=== PATIENT | female | born 1945 | race Caucasian/White ===

== ENCOUNTER 2016-10-04 14:01 | Emergency (ER) | payer MEDICARE, BC ==
[2016-10-04 14:33] VITALS: BP 121/63
--- NOTE | 2016-10-04 14:35 | EDM.PDOC ---
ED HPI GENERAL MEDICAL PROBLEM - General Chief Complaint: General Stated Complaint: bleeding after dialysis Time Seen by Provider: 10/04/16 14:29 Source of Information: Reports: Patient History Limitations: Reports: No Limitations - History of Present Illness INITIAL COMMENTS - FREE TEXT/NARRATIVE: PT PRESENTS FROM DIALYSIS CENTER WITH CONCERN FOR LOW HEMOGLOBIN AND PERSISTENT BLEEDING FORM AV FISTULA ACCESS SITE POST DIALYSIS TODAY. DENIES CP, FEVER, N/V/ D, BLOOD IN STOOL. RECEIVES DIALYSIS M/W/F. Onset: Today Onset Date: 10/04/16 Location: Reports: Upper Extremity, Left Severity: Mild Improves with: Reports: Other (PRESSURE AT SITE) Worsens with: Reports: None Associated Symptoms: Reports: No Other Symptoms - Related Data Allergies Allergy/AdvReac Type Severity Reaction Status Date / Time No Known Allergies Allergy Verified 11/16/14 11:20 Home Meds: Home Meds Acetaminophen/oxyCODONE [Percocet 325-5 MG] 1 tab PO Q4H PRN 08/01/14 [History] Amiodarone [Cordarone] 200 mg PO DAILY 08/01/14 [History] Gabapentin [Gabapentin] 300 mg PO BID 08/01/14 [History] Insulin Glargine,Hum.Rec.Anlog [Lantus Solostar] 70 units SUBCUT DAILY 08/01/14 [History] Omeprazole [Omeprazole] 20 mg PO DAILY 08/01/14 [History] Sevelamer Carbonate [Renvela] 3 tab PO TID 08/01/14 [History] Tiotropium [Spiriva HandiHaler] 18 mcg INH DAILY 11/16/14 [History] Biotin/FA/Vit C/Vit B Complex [Nephrocaps] 1 tab PO DAILY 10/04/16 [History] Docusate Sodium [Colace] 100 mg PO DAILY 10/04/16 [History] Fluticasone/Salmeterol [Advair 250-50 Diskus] 1 puff INH BID 10/04/16 [History] Nitroglycerin [Nitrostat] 0.4 mg SL ASDIRECTED PRN MDD 3 10/04/16 [History] Warfarin Sodium [Coumadin] 3 mg PO DAILY 10/04/16 [History] atorvaSTATin Calcium [Atorvastatin Calcium] 40 mg PO DAILY 10/04/16 [History] Social & Family History - Tobacco Use Smoking Status *Q: Former Smoker Years of Tobacco use: 35 Used Tobacco, but Quit: Yes Month Tobacco Last Used: 1 Second Hand Smoke Exposure: No - Alcohol Use Days Per Week of Alcohol Use: 0 - Recreational Drug Use Recreational Drug Use: No ED ROS GENERAL - Review of Systems Review Of Systems: ROS reveals no pertinent complaints other than HPI. Constitutional: Reports: No Symptoms HEENT: Reports: No Symptoms Respiratory: Reports: Shortness of Breath (OF CHRONIC NATURE) Cardiovascular: Reports: No Symptoms Endocrine: Reports: No Symptoms GI/Abdominal: Reports: No Symptoms : Reports: No Symptoms Musculoskeletal: Reports: No Symptoms Skin: Reports: No Symptoms Neurological: Reports: No Symptoms Psychiatric: Reports: No Symptoms Hematologic/Lymphatic: Reports: Anemia Immunologic: Reports: No Symptoms ED EXAM, GENERAL - Physical Exam Exam: See Below Exam Limited By: No Limitations General Appearance: Alert, WD/WN, No Apparent Distress Eye Exam: Bilateral Eye: Normal Inspection Nose: Normal Inspection, No Blood Throat/Mouth: Normal Inspection, Normal Oropharynx, No Airway Compromise Head: Atraumatic, Normocephalic Neck: Normal Inspection Respiratory/Chest: No Respiratory Distress, Lungs Clear, Normal Breath Sounds, No Accessory Muscle Use, Chest Non-Tender Cardiovascular: Normal Peripheral Pulses, No Edema, Irregularly Irregular (OF CHRONIC NATURE ) GI/Abdominal: Normal Bowel Sounds, Soft, Non-Tender Back Exam: Normal Inspection. No: CVA Tenderness (L), CVA Tenderness (R) Extremities: Pedal Edema (CHRONIC), Other (LEFT UE AV FISTULA WITH GOOD THRILL N HEMOSTASIS) Neurological: Alert, Oriented, Normal Cognition Psychiatric: Normal Affect, Normal Mood Skin Exam: Warm, Dry, Intact, Normal Color, No Rash Lymphatic: No Adenopathy Course - Orders/Labs/Meds Orders: Active Orders 24 hr Category Date Time Status CBC WITH AUTO DIFF [HEME] Stat Lab 10/04/16 14:20 Ordered COMPREHENSIVE METABOLIC PN,CMP [CHEM] Stat Lab 10/04/16 14:23 Ordered INR,PT,PROTHROMBIN TIME [COAG] Stat Lab 10/04/16 14:23 Ordered - Re-Assessments/Exams Free Text/Narrative Re-Assessment/Exam: 10/04/16 15:25 PT AFEBRILE, NONTOXIC APPEARING, VSS. DISCUSSED CASE AND LAB VALUES WITH DR GREER AND HE SUGGESTED DISCHARGE WITH F/U FOR SCHEDULED DIALYSIS ON SUNDAY. Departure - Departure Time of Disposition: 15:26 Disposition: Home, Self-Care 01 Condition: Good Clinical Impression: Patent hemodialysis access site Anemia Qualifiers: Anemia type: due to chronic kidney disease - Discharge Information Instructions: Anemia, Nonspecific Forms: ED Department Discharge Additional Instructions: FOLLOW UP SCHEDULED TO DIALYSIS ON SUNDAY - My Orders Last 24 Hours: My Active Orders 10/04/16 14:20 CBC WITH AUTO DIFF [HEME] Stat 10/04/16 14:23 COMPREHENSIVE METABOLIC PN,CMP [CHEM] Stat INR,PT,PROTHROMBIN TIME [COAG] Stat - Assessment/Plan Last 24 Hours: My Active Orders 10/04/16 14:20 CBC WITH AUTO DIFF [HEME] Stat 10/04/16 14:23 COMPREHENSIVE METABOLIC PN,CMP [CHEM] Stat INR,PT,PROTHROMBIN TIME [COAG] Stat Assessment:: ANEMIA / A-V FISTULA BLEEDING
== END 2016-10-04 15:45 | disposition home or self-care (01) ==
LOC: KA.ED 14:01
DX: T82.838A Hemorrhage due to vascular prosthetic devices, implants and grafts, initial encounter (principal); N18.9 Chronic kidney disease, unspecified; D63.1 Anemia in chronic kidney disease; Z99.2 Dependence on renal dialysis
CPT/HCPCS: 36415; 80053; 85025; 85610; 85730; 99282; 99283

== ENCOUNTER 2017-01-31 08:05 | Emergency (ER) | payer MEDICARE, BC ==
[2017-01-31] MEDS ORDERED: Sodium Chloride 0.9% 500 ML IV SCH (08:15)
--- NOTE | 2017-01-31 08:31 | EDM.PDOC ---
ED HPI GENERAL MEDICAL PROBLEM - General Chief Complaint: Syncope Stated Complaint: Syncope during dialysis Time Seen by Provider: 01/31/17 08:05 Source of Information: Reports: Patient, EMS History Limitations: Reports: No Limitations - History of Present Illness INITIAL COMMENTS - FREE TEXT/NARRATIVE: 71 YO WF with PMH of ESRD- HD (//sun), Htn, A fib, IDDM, COPD with O2 at night time who presents to ER by EMS after an episode of hypotension during dialysis. Pt had a syncopal episode during dialysis which lasted for approx 2 minutes per staff. EMS arrived and patient was alert and oriented x 3 and arousable. Pt has had previous episodes in the past and is taking midrogen predialysis for BP support. Pt is currently alert and oriented x 4 without complaints. Pt denies chest pain, shortness of breath, dizziness or headache. Current BP 86/58 Onset: Sudden Onset Date: 01/31/17 Onset Time: 06:00 Duration: Recurring Location: Reports: Generalized Severity: Mild Improves with: Reports: None Worsens with: Reports: None Associated Symptoms: Reports: No Other Symptoms, Syncope - Related Data Allergies Allergy/AdvReac Type Severity Reaction Status Date / Time No Known Allergies Allergy Verified 01/31/17 09:29 Home Meds: Home Meds Acetaminophen/oxyCODONE [Percocet 325-5 MG] 1 tab PO TID PRN 08/01/14 [History] Gabapentin [Gabapentin] 300 mg PO BID 08/01/14 [History] Insulin Glargine,Hum.Rec.Anlog [Lantus Solostar] 30 units SUBCUT DAILY 08/01/14 [History] Omeprazole [Omeprazole] 20 mg PO DAILY 08/01/14 [History] Tiotropium [Spiriva HandiHaler] 18 mcg INH DAILY 11/16/14 [History] Biotin/FA/Vit C/Vit B Complex [Nephrocaps] 1 tab PO DAILY 10/04/16 [History] Docusate Sodium [Colace] 100 mg PO DAILY 10/04/16 [History] Nitroglycerin [Nitrostat] 0.4 mg SL ASDIRECTED PRN MDD 3 10/04/16 [History] Warfarin Sodium [Coumadin] 4 mg PO DAILY 10/04/16 [History] atorvaSTATin Calcium [Atorvastatin Calcium] 40 mg PO DAILY 10/04/16 [History] Albuterol Sulfate [Proair Hfa] 2 puff IH Q4H PRN 01/31/17 [History] Cranberry Extract/Vit C [Azo Cranberry Softgel] 1 each PO DAILY 01/31/17 [ History] Metoprolol Succinate [Toprol XL] 25 mg PO DAILY 01/31/17 [History] Past Medical History HEENT History: Reports: Cataract Cardiovascular History: Reports: High Cholesterol, Hypertension, Stents Respiratory History: Reports: SOB Gastrointestinal History: Reports: GERD Genitourinary History: Reports: 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: Musculoskeletal History: Reports: Arthritis Endocrine/Metabolic History: Reports: Diabetes, Type I Hematologic History: Reports: Anticoagulation Therapy Oncologic (Cancer) History: Reports: Lung, Other (See Below) Other Oncologic History: treated with radiation and chemo Dermatologic History: Reports: Other (See Below) Other Dermatologic History: chronic dry skin - Past Surgical History HEENT Surgical History: Reports: Cataract Surgery Cardiovascular Surgical History: Reports: Coronary Artery Stent GI Surgical History: Reports: Appendectomy Musculoskeletal Surgical History: Reports: Hip Replacement Social & Family History - Family History Family Medical History: Noncontributory - Tobacco Use Smoking Status *Q: Former Smoker Years of Tobacco use: 35 Used Tobacco, but Quit: Yes Month Tobacco Last Used: 1 Second Hand Smoke Exposure: No - Caffeine Use Caffeine Use: Reports: Coffee Other Caffeine Use: minimal, doesnt drink coffee at home - Alcohol Use Days Per Week of Alcohol Use: 0 - Recreational Drug Use Recreational Drug Use: No ED ROS GENERAL - Review of Systems Review Of Systems: See Below Constitutional: Reports: No Symptoms HEENT: Reports: No Symptoms Respiratory: Reports: No Symptoms Cardiovascular: Reports: No Symptoms Endocrine: Reports: No Symptoms GI/Abdominal: Reports: No Symptoms : Reports: No Symptoms Musculoskeletal: Reports: No Symptoms Skin: Reports: No Symptoms Neurological: Reports: No Symptoms Psychiatric: Reports: No Symptoms Hematologic/Lymphatic: Reports: No Symptoms Immunologic: Reports: No Symptoms - Physical Exam Exam: See Below Exam Limited By: No Limitations General Appearance: Alert, WD/WN, No Apparent Distress Nose: Normal Inspection, Normal Mucosa, No Blood Throat/Mouth: Normal Inspection, Normal Lips, Normal Teeth, Normal Gums, Normal Oropharynx, Normal Voice, No Airway Compromise Head Exam: Atraumatic, Normocephalic Neck: Normal Inspection, Supple, Non-Tender, Full Range of Motion Respiratory/Chest: No Respiratory Distress, Normal Breath Sounds, No Accessory Muscle Use, Chest Non-Tender, Decreased Breath Sounds Cardiovascular: Normal Peripheral Pulses, Regular Rate, Rhythm, No Edema, No Gallop, No JVD, No Murmur, No Rub GI/Abdominal: Normal Bowel Sounds, Soft, Non-Tender, No Organomegaly, No Distention, No Abnormal Bruit, No Mass Neuro Exam (Abbreviated): Alert, Oriented, CN II-XII Intact, Normal Cognition, Normal Gait, Normal Reflexes, No Motor/Sensory Deficits Back Exam: Normal Inspection, Full Range of Motion, NT Extremities: Normal Inspection, Normal Range of Motion, Non-Tender, No Pedal Edema, Normal Capillary Refill Psychiatric: Normal Affect, Normal Mood Skin Exam: Warm, Dry, Intact, Normal Color, No Rash EKG INTERPRETATION EKG Date: 01/31/17 Time: 08:24 Rhythm: NSR Rate (Beats/Min): 93 [place]: Normal P-Wave: Present QRS: Normal ST-T: Normal QT: Normal Comparison: NA - No Prior EKG Course - Vital Signs Last Recorded V/S: Last Vital Signs Temp 36.6 C 01/31/17 08:48 Pulse 92 01/31/17 09:10 Resp 24 H 01/31/17 09:10 BP 106/54 L 01/31/17 09:10 Pulse Ox 92 L 01/31/17 09:10 - Orders/Labs/Meds Orders: Active Orders 24 hr Category Date Time Status Chest 2V [CR] Stat Exams 01/31/17 08:06 Ordered Head wo Cont [CT] Stat Exams 01/31/17 08:06 Taken CULTURE BLOOD [BC] Stat Lab 01/31/17 10:12 Ordered CULTURE BLOOD [BC] Stat Lab 01/31/17 10:12 Ordered Piperacillin/Tazobactam [Zosyn] 3.375 gm Med 01/31/17 10:15 Ordered Sodium Chloride 0.9% [Normal Saline] 100 ml IV Q6H Vancomycin 1 gm Med 01/31/17 10:15 Ordered Sodium Chloride 0.9% [Normal Saline] 250 ml IV Q24H Blood Culture x2 Reflex Set [OM.PC] Stat Oth 01/31/17 10:12 Ordered EKG 12 Lead [EK] Routine Ther 01/31/17 08:06 Ordered Medication Orders Piperacillin Sod/Tazobactam (Sod 3.375 gm/ Sodium Chloride) 100 mls @ 200 mls/ hr IV Q6H GOLDEN Vancomycin HCl 1 gm/ Sodium (Chloride) 250 mls @ 167 mls/hr IV Q24H [facility] Labs: Laboratory Tests 01/31/17 01/31/17 01/31/17 Range/Units 08:55 08:55 08:55 WBC 6.1 (5.0-10.0) 10^3/uL RBC 2.96 L (3.80-5.50) 10^6/uL Hgb 10.1 L (12.0-16.0) g/dL Hct 30.6 L (37.0-47.0) % MCV 103.3 H (82.0-92.0) fL MCH 34.1 H (27.0-31.0) pg MCHC 33.1 (32.0-36.0) g/dL RDW 19.0 H (11.5-14.5) % Plt Count 146 L (150-300) 10^3/uL MPV 6.1 L (7.4-10.4) fL Neut % (Auto) 66.8 (50.0-70.0) % Lymph % (Auto) 16.5 L (20.0-40.0) % [place] % (Auto) 11.8 H (2.0-8.0) % Eos % (Auto) 3.7 H (1.0-3.0) % Baso % (Auto) 1.2 H (0.0-1.0) % Neut # (Auto) 4.1 (2.5-7.0) 10^3/uL Lymph # (Auto) 1.0 (1.0-4.0) 10^3/uL [place] # (Auto) 0.7 (0.1-0.8) 10^3/uL Eos # (Auto) 0.2 (0.1-0.3) 10^3/uL Baso # (Auto) 0.1 (0.0-0.1) 10^3/uL PT 27.3 H (8.9-11.4) SEC INR 2.8 H (0.9-1.1) APTT 33.4 H (20.8-31.2) SEC Sodium 136 (136-145) mmol/L Potassium 5.2 (3.3-5.3) mmol/L Chloride 100 (98-115) mmol/L Carbon Dioxide 26.2 (21.0-32.0) mmol/L BUN 26 H (6-25) mg/dL Creatinine 6.00 H (0.51-1.17) mg/dL Est Cr Clr Drug Dosing 7.63 mL/min Estimated GFR (MDRD) 7 mL/min Glucose 257 H (70-110) mg/dL Calcium 9.3 (8.7-10.3) mg/dL Total Bilirubin 0.3 (0.2-1.0) mg/dL AST 10 L (15-37) U/L ALT 17 (12-78) U/L Alkaline Phosphatase 133 H (46-116) IU/L Creatine Kinase 41 (26-276) U/L CK-MB (CK-2) 1.40 (0.00-4.30) ng/mL Troponin I 0.05 (0.00-0.070) ng/mL B-Natriuretic Peptide 379 H (0-100) pg/mL Total Protein 7.0 (6.4-8.2) g/dL Albumin 3.49 (3.00-4.80) g/dL Meds: Medications Generic Name Dose Route Start Last Admin Trade Name Freq PRN Reason Stop Dose Admin Piperacillin Sod/Tazobactam 100 mls @ 200 mls/hr 01/31/17 10:15 Sod 3.375 gm/ Sodium Chloride IV Q6H GOLDEN Vancomycin HCl 1 gm/ Sodium 250 mls @ 167 mls/hr 01/31/17 10:15 Chloride IV Q24H GOLDEN Discontinued Medications Generic Name Dose Route Start Last Admin Trade Name Freq PRN Reason Stop Dose Admin Sodium Chloride 500 mls @ 500 drops/hr 01/31/17 08:15 Normal Saline IV .BOLUS GOLDEN - Radiology Interpretation Free Text/Narrative:: CXR- left mid lung CT Head- NAD Departure - Departure Time of Disposition: Disposition: DC/Tfer to Acute Hospital 02 Condition: Fair Clinical Impression: Pneumonia, Hypoxia - Discharge Information Referrals: Reji Puente PA [Primary Care Provider] - Forms: ED Department Discharge, Interfacility Transfer EMTALA - My Orders Last 24 Hours: My Active Orders 01/31/17 08:06 Chest 2V [CR] Stat Head wo Cont [CT] Stat EKG 12 Lead [EK] Routine 01/31/17 10:12 CULTURE BLOOD [BC] Stat CULTURE BLOOD [BC] Stat Blood Culture x2 Reflex Set [OM.PC] Stat 01/31/17 10:15 Piperacillin/Tazobactam [Zosyn] 3.375 gm Sodium Chloride 0.9% [Normal Saline] 100 ml IV Q6H Vancomycin 1 gm Sodium Chloride 0.9% [Normal Saline] 250 ml IV Q24H - Assessment/Plan Last 24 Hours: My Active Orders 01/31/17 08:06 Chest 2V [CR] Stat Head wo Cont [CT] Stat EKG 12 Lead [EK] Routine 01/31/17 10:12 CULTURE BLOOD [BC] Stat CULTURE BLOOD [BC] Stat Blood Culture x2 Reflex Set [OM.PC] Stat 01/31/17 10:15 Piperacillin/Tazobactam [Zosyn] 3.375 gm Sodium Chloride 0.9% [Normal Saline] 100 ml IV Q6H Vancomycin 1 gm Sodium Chloride 0.9% [Normal Saline] 250 ml IV Q24H Assessment:: 1. syncope 2. hypotension 3. hypoxia 4. pneumonia 5. ESRD 6. A fib CVR Plan: 1. transfer to [facility] 2. vanco/zosyn 3. blood cultures 4. oxygen 3L 5. supportive care
[2017-01-31 09:11] VITALS: BP 106/54
[2017-01-31] MEDS ORDERED: Piperacillin/Tazobactam 3.375 GM in Sodium Chloride 0.9% 100 ML IV SCH (10:15)
== END 2017-01-31 11:40 ==
LOC: KA.ED 08:05
DX: J18.9 Pneumonia, unspecified organism (principal); R09.02 Hypoxemia; J44.9 Chronic obstructive pulmonary disease, unspecified; I12.0 Hypertensive chronic kidney disease with stage 5 chronic kidney disease or end stage renal disease; N18.6 End stage renal disease; E10.22 Type 1 diabetes mellitus with diabetic chronic kidney disease; E78.00 Pure hypercholesterolemia, unspecified; K21.9 Gastro-esophageal reflux disease without esophagitis; Z79.01 Long term (current) use of anticoagulants; Z96.649 Presence of unspecified artificial hip joint; Z95.5 Presence of coronary angioplasty implant and graft; Z79.4 Long term (current) use of insulin; Z79.899 Other long term (current) drug therapy; Z99.2 Dependence on renal dialysis; Z99.81 Dependence on supplemental oxygen
CPT/HCPCS: 36415; 70450; 71020; 80053; 82550; 82553; 83880; 84484; 85025; 85610; 85730; 93005; 96360; 99285; J7040

== ENCOUNTER 2017-08-06 16:48 | Emergency (ER) | payer MEDICARE, BC ==
[2017-08-06 17:05] VITALS: BP 114/47
--- NOTE | 2017-08-06 17:32 | EDM.PDOC ---
ED HPI GENERAL MEDICAL PROBLEM - General Chief Complaint: Lower Extremity Injury/Pain Stated Complaint: LEFT ANKLE INJURY Time Seen by Provider: 08/06/17 17:15 Source of Information: Reports: Patient History Limitations: Reports: No Limitations - History of Present Illness INITIAL COMMENTS - FREE TEXT/NARRATIVE: 72 YO WF presents to ER with left lower extremity injury which occurred today around 12pm. Pt was being pushed in a wheelchair to dialysis and accidentally got her foot caught under the wheel of the chair causing pain to left ankle. Pt was able to get her full dialysis treatment today. Pt complaining of pain to medial aspect of left ankle. Pt unable to put weight on her left leg due to pain. 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 Left Ankle Pain Score (Numeric/FACES): 10 - Related Data Allergies Allergy/AdvReac Type Severity Reaction Status Date / Time No Known Allergies Allergy Verified 08/06/17 17:06 Home Meds: Home Meds Acetaminophen/oxyCODONE [Percocet 325-5 MG] 1 tab PO TID PRN 08/01/14 [History] Gabapentin 300 mg PO BID 08/01/14 [History] Insulin Glargine,Hum.Rec.Anlog [Lantus Solostar] 30 units SUBCUT DAILY 08/01/14 [History] Omeprazole 20 mg PO DAILY 08/01/14 [History] Tiotropium [Spiriva HandiHaler] 18 mcg INH DAILY 11/16/14 [History] Biotin/FA/Vit C/Vit B Complex [Nephrocaps] 1 tab PO DAILY 10/04/16 [History] Docusate Sodium [Colace] 100 mg PO DAILY 10/04/16 [History] Nitroglycerin [Nitrostat] 0.4 mg SL ASDIRECTED PRN MDD 3 10/04/16 [History] Warfarin Sodium [Coumadin] 4 mg PO DAILY 10/04/16 [History] atorvaSTATin Calcium [Atorvastatin Calcium] 40 mg PO DAILY 10/04/16 [History] Albuterol Sulfate [Proair Hfa] 2 puff IH Q4H PRN 01/31/17 [History] Cranberry Extract/Vit C [Azo Cranberry Softgel] 1 each PO DAILY 01/31/17 [ History] Metoprolol Succinate [Toprol XL] 25 mg PO DAILY 01/31/17 [History] Past Medical History HEENT History: Reports: Cataract Cardiovascular History: Reports: High Cholesterol, Hypertension, Stents Respiratory History: Reports: SOB Gastrointestinal History: Reports: GERD 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: Musculoskeletal History: Reports: Arthritis Endocrine/Metabolic History: Reports: Diabetes, Type I Hematologic History: Reports: Anticoagulation Therapy Oncologic (Cancer) History: Reports: Lung, Other (See Below) Other Oncologic History: treated with radiation and chemo Dermatologic History: Reports: Other (See Below) Other Dermatologic History: chronic dry skin - Past Surgical History HEENT Surgical History: Reports: Cataract Surgery Cardiovascular Surgical History: Reports: Coronary Artery Stent GI Surgical History: Reports: Appendectomy Musculoskeletal Surgical History: Reports: Hip Replacement Social & Family History - Family History Family Medical History: Noncontributory - Tobacco Use Smoking Status *Q: Former Smoker Years of Tobacco use: 35 Used Tobacco, but Quit: Yes Month/Year Tobacco Last Used: 1 Second Hand Smoke Exposure: No - Caffeine Use Caffeine Use: Reports: Coffee Other Caffeine Use: minimal, doesnt drink coffee at home - Alcohol Use Days Per Week of Alcohol Use: 0 - Recreational Drug Use Recreational Drug Use: No Review of Systems - Review of Systems Review Of Systems: See Below Constitutional: Reports: No Symptoms Eyes: Reports: No Symptoms Ears: Reports: No Symptoms Nose: Reports: No Symptoms Mouth/Throat: Reports: No Symptoms Respiratory: Reports: No Symptoms Cardiovascular: Reports: No Symptoms GI/Abdominal: Reports: No Symptoms Genitourinary: Reports: No Symptoms Musculoskeletal: Reports: Leg Pain (left ankle) Skin: Reports: No Symptoms Neurological: Reports: No Symptoms Psychiatric: Reports: No Symptoms ED EXAM, GENERAL - Physical Exam Exam: See Below Exam Limited By: No Limitations General Appearance: Alert, WD/WN, No Apparent Distress Nose: Normal Inspection, Normal Mucosa, No Blood Throat/Mouth: Normal Inspection, Normal Lips, Normal Teeth, Normal Gums, Normal Oropharynx, Normal Voice, No Airway Compromise Head: Atraumatic, Normocephalic Neck: Normal Inspection, Supple, Non-Tender, Full Range of Motion Respiratory/Chest: No Respiratory Distress, Lungs Clear, Normal Breath Sounds, No Accessory Muscle Use, Chest Non-Tender Cardiovascular: Normal Peripheral Pulses, Regular Rate, Rhythm, No Edema, No Gallop, No JVD, No Murmur, No Rub GI/Abdominal: Normal Bowel Sounds, Soft, Non-Tender, No Organomegaly, No Distention, No Abnormal Bruit, No Mass Extremities: Leg Pain (left ankle) Neurological: Alert, Oriented, CN II-XII Intact, Normal Cognition, Normal Gait, Normal Reflexes, No Motor/Sensory Deficits Psychiatric: Normal Affect, Normal Mood Skin Exam: Warm, Dry, Intact, Normal Color, No Rash Lymphatic: No Adenopathy ED TRAUMA EXTREMITY PROCEDURES - Splinting Left Lower Extremity Splint Site: left lower extremity/ankle Pre-Procedure NV Status: Normal Splint Material: Fiberglass Splint Design: Posterior Applied & Form Fitted By: Provider Provider Post-Splint Application NV Check: NV Status Normal, Good Position Complications: No Course - Vital Signs Last Recorded V/S: Last Vital Signs Temp 37.1 C 08/06/17 17:01 Pulse 130 H 08/06/17 17:01 Resp 20 08/06/17 17:01 BP 114/47 L 08/06/17 17:01 Pulse Ox 98 08/06/17 17:01 - Orders/Labs/Meds Orders: Active Orders 24 hr Category Date Time Status Ankle Min 3V Lt [CR] Stat Exams 08/06/17 16:56 Ordered Foot 2V Lt [CR] Stat Exams 08/06/17 17:00 Ordered Ketorolac [Toradol] Med 08/06/17 17:37 Once 60 mg IM ONETIME ONE - Radiology Interpretation Free Text/Narrative:: left ankle- fracture of left distal tibia- nondisplaced Departure - Departure Time of Disposition: 17:46 Disposition: Home, Self-Care 01 Condition: Good Clinical Impression: Fracture of tibia Tibia fracture Qualifiers: Encounter type: initial encounter Tibia location: distal Fracture type: closed Fracture alignment: nondisplaced Laterality: left - Discharge Information Referrals: Rosaura Laughlin NP [Primary Care Provider] - Forms: ED Department Discharge - My Orders Last 24 Hours: My Active Orders 08/06/17 16:56 Ankle Min 3V Lt [CR] Stat 08/06/17 17:00 Foot 2V Lt [CR] Stat 08/06/17 17:37 Ketorolac [Toradol] 60 mg IM ONETIME ONE - Assessment/Plan Last 24 Hours: My Active Orders 08/06/17 16:56 Ankle Min 3V Lt [CR] Stat 08/06/17 17:00 Foot 2V Lt [CR] Stat 08/06/17 17:37 Ketorolac [Toradol] 60 mg IM ONETIME ONE Assessment:: 1. left distal tibia fracture Plan: 1. follow up with ortho in [place] this week for further management and splinting of distal tibia fracture 2. discharge to [facility] 3. continue current pain regime 4. return to ER for worsening symptoms
[2017-08-06] MEDS ORDERED: Ketorolac 60 MG/2 ML SDV IM ONE (17:37)
== END 2017-08-06 18:21 | disposition home or self-care (01) ==
LOC: KA.ED 16:48
DX: S82.302A Unspecified fracture of lower end of left tibia, initial encounter for closed fracture (principal); E78.00 Pure hypercholesterolemia, unspecified; I10 Essential (primary) hypertension; K21.9 Gastro-esophageal reflux disease without esophagitis; E10.9 Type 1 diabetes mellitus without complications; Z87.891 Personal history of nicotine dependence; W23.0XXA Caught, crushed, jammed, or pinched between moving objects, initial encounter; Z79.4 Long term (current) use of insulin; Z79.01 Long term (current) use of anticoagulants; Z79.899 Other long term (current) drug therapy; Z95.5 Presence of coronary angioplasty implant and graft; Z99.2 Dependence on renal dialysis
CPT/HCPCS: 29515; 73610; 73620; 96372; 99283; J1885